=== PATIENT | male | born 1970 | race African-American/Black ===

== ENCOUNTER 2020-06-17 07:17 | Emergency (ER) | payer MEDICAID ==
[~2020-06-17] VITALS: Ht 182.9 cm; Wt 104.0 kg
[2020-06-17] MEDS ORDERED: KETOROLAC 30MG/ML VIAL IM ONE (08:30)
[2020-06-17 08:42] VITALS: BP 150/87
== END 2020-06-17 09:56 | disposition home or self-care (01) ==
LOC: ER 07:17
DX: M54.5 Low back pain (principal)
CPT/HCPCS: 72100; 96372; 99283; J1885